=== PATIENT | male | born 1965 | race Caucasian/White ===

== ENCOUNTER 2016-11-06 01:15 | Emergency (ER) | payer MEDICAID ==
[~2016-11-06] VITALS: Ht 170.2 cm; Wt 54.4 kg
[2016-11-06] MEDS ORDERED: LIDOCAINE 1% MDV 20ML VIAL As Ordered ONE (03:32)
[2016-11-06] MEDS ORDERED: AUGMENTIN 875 MG TAB PO ONE (04:00)
[2016-11-06] MEDS ORDERED: AUGM500T34 PO (05:34)
[2016-11-06] MEDS ORDERED: NEOSPORIN OINT 0.9 GM PKT (FLOOR STOCK) As Ordered ONE (05:55)
[2016-11-06 06:06] VITALS: BP 155/75
--- NOTE | 2016-11-06 08:01 | REP ---
Right hand two views: Mineralization and joint spaces are normal. There is no fracture or dislocation. There is diffuse soft tissue edema of the middle finger. There is no fracture. Mineralization normal. Joint spaces are normal. Impression: Diffuse soft tissue edema of the middle finger. No skeletal abnormality. Signed by Fazal Cornelius MD 11/06/2016 07:51 A
== END 2016-11-06 06:07 | disposition home or self-care (01) ==
LOC: M ED 03:04
DX: S60.442A External constriction of right middle finger, initial encounter (principal); W49.04XA Ring or other jewelry causing external constriction, initial encounter; Y92.89 Other specified places as the place of occurrence of the external cause; Y93.89 Activity, other specified; Y99.8 Other external cause status; F10.20 Alcohol dependence, uncomplicated

== ENCOUNTER 2019-06-27 02:35 | Emergency (ER) | payer MEDICAID ==
[~2019-06-27] VITALS: Ht 175.3 cm; Wt 68.2 kg
[~2019-06-27 02:35] MED LIST: AUGM500T34 PO
[2019-06-27] MEDS ORDERED: TETANUS/DIPHTHERIA TOX ADSORB ADULT 0.5ML SYR/VIAL (90714) IM ONE ×2 (04:30→05:30)
[2019-06-27 04:40] LABS: BASO # 0.1 10^3/uL (0.0-0.2); BASO % 0.5 % (0.0-1.0); EOS # 0.1 10^3/uL (0.0-0.5); EOS % 0.6 % (0.0-3.0); HEMATOCRIT 44.8 % (42.0-52.0); HEMOGLOBIN 14.7 g/dl (13.5-17.5); LYMPH # 1.3 10^3/uL (1.5-5.0); LYMPH % 9.9 % (24.0-44.0); MEAN CORPUSCULAR HGB CONC 32.8 g/dl (32.0-36.5); MEAN CORPUSCULAR VOLUME 97.6 fl (80.0-96.0); MONO # 0.6 10^3/uL (0.0-0.8); MONO % 4.6 % (0.0-5.0); NEUTROPHILS # 10.8 10^3/uL (1.5-8.5); PLATELET COUNT, AUTOMATED 179 10^3/uL (150-450); RED BLOOD COUNT 4.59 10^6/uL (4.30-6.10); WHITE BLOOD COUNT 12.8 10^3/uL (4.0-10.0)
[2019-06-27 04:51] LABS: INR 0.95; PROTHROMBIN TIME 12.4 SECONDS (11.8-14.0)
[2019-06-27 04:52] LABS: PARTIAL THROMBOPLASTIN TIME 32.8 SECONDS (25.0-38.4)
[2019-06-27 04:59] LABS: BLOOD UREA NITROGEN 11 MG/DL (7-18); CALCIUM LEVEL 8.9 MG/DL (8.5-10.1); CARBON DIOXIDE LEVEL 30 MEQ/L (21-32); CHLORIDE LEVEL 107 MEQ/L (98-107); ETHYL ALCOHOL (ETHANOL) 0.179 % (0.000-0.010); GLOMERULAR FILTRATION RATE > 60.0 (>56); GLUCOSE, FASTING 92 MG/DL (70-100); POTASSIUM SERUM 3.6 MEQ/L (3.5-5.1); SODIUM LEVEL 145 MEQ/L (136-145)
[2019-06-27 05:54] VITALS: BP 111/66
--- NOTE | 2019-06-27 10:24 | REP ---
REASON FOR EXAM: Trauma. COMPARISON: 04/27/2015. Preliminary report given by Dr. Denny from [facility] at the time that the exam was performed. There is a tiny amount of increased density in the sulci of the right frontal lobe and representing a change from the prior exam consistent with a slight right frontal lobe subarachnoid hemorrhage. There are no other changes from the prior exam other than mucosal thickening in the left maxillary sinus. There is an old/age undetermined nasal arch fracture. IMPRESSION: Subarachnoid hemorrhage as described above with other findings. According to the preliminary report, Dr. Castro in the emergency Department was notified by the [facility]. Electronically Signed by Bob Mejía DO 06/27/2019 11:42 A
--- NOTE | 2019-06-27 10:28 | REP ---
REASON: Trauma. COMPARISON: 04/27/2015 Preliminary report was given by Dr. Denny from [facility] at the time that the exam was performed. 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 There is an old healed odontoid fracture. This was acute on the prior exam and extended into the facet base. Today's exam shows no acute odontoid fracture or evidence of other acute fracture. Degenerative change is seen throughout the spine status quo. IMPRESSION: Nonacute findings, however, if the patient is experiencing severe pain, then MRI would be in order. Electronically Signed by Bob Mejía DO 06/27/2019 11:42 A
== END 2019-06-27 05:57 | disposition short-term general hospital (02) ==
LOC: M ED 02:35
DX: S06.6X0A Traumatic subarachnoid hemorrhage without loss of consciousness, initial encounter (principal); S01.01XA Laceration without foreign body of scalp, initial encounter; X58.XXXA Exposure to other specified factors, initial encounter; Y92.410 Unspecified street and highway as the place of occurrence of the external cause; Y93.9 Activity, unspecified; Y99.9 Unspecified external cause status; F10.10 Alcohol abuse, uncomplicated
CPT/HCPCS: 12001; 70450; 72125; 80048; 85025; 85610; 85730; 90471; 90714; 99285; G0480

== ENCOUNTER 2023-08-29 11:36 | Emergency (ER) | payer MEDICAID ==
[2023-08-29] MEDS ORDERED: NS 1,000 ML IV SCH (11:50)
[2023-08-29] MEDS ORDERED: NS 1,000 ML IV ONE (12:20)
[2023-08-29 12:25] LABS: VENOUS BASE EXCESS 3.2 (-2.0-2.0); VENOUS HCO3 28.7 MMOL/L (23.0-27.0); VENOUS PARTIAL PRESSURE CO2 46.6 mmHg (38.0-50.0); VENOUS PH 7.408 UNITS (7.330-7.430); VENOUS STANDARD HCO3 26.4 MMOL/L; VENOUS TOTAL CO2 30.2 MMOL/L (24.0-28.0)
[2023-08-29 12:29] LABS: BASO % 0.1 % (0.0-1.0); HEMATOCRIT 44.7 % (42.0-52.0); HEMOGLOBIN 15.3 g/dl (13.5-17.5); LYMPH # 0.4 10^3/uL (1.5-5.0); LYMPH % 3.9 % (24.0-44.0); MEAN CORPUSCULAR HEMOGLOBIN 30.8 pg (27.0-33.0); MEAN CORPUSCULAR HGB CONC 34.2 g/dl (32.0-36.5); MEAN CORPUSCULAR VOLUME 90.1 fl (80.0-96.0); MONO # 0.2 10^3/uL (0.0-0.8); MONO % 2.3 % (2.0-8.0); NEUTROPHILS # 9.2 10^3/uL (1.5-8.5); NEUTROPHILS % 93.2 % (36.0-66.0); RED BLOOD COUNT 4.96 10^6/uL (4.30-6.10); WHITE BLOOD COUNT 9.9 10^3/uL (4.0-10.0)
[2023-08-29 12:39] LABS: INR 1.19; PROTHROMBIN TIME 14.7 SECONDS (12.5-14.5)
[2023-08-29 12:54] LABS: AMPHETAMINES LEVEL URINE NEGATIVE (NEGATIVE); BARBITURATES URINE NEGATIVE (NEGATIVE); BENZODIAZEPINES URINE NEGATIVE (NEGATIVE); CANNABINOIDS URINE NEGATIVE (NEGATIVE); COCAINE METABOLITE URINE NEGATIVE (NEGATIVE); METHADONE URINE NEGATIVE (NEGATIVE); OPIATES URINE NEGATIVE (NEGATIVE); PHENCYCLIDINE URINE NEGATIVE (NEGATIVE)
[2023-08-29 12:57] LABS: LIPASE 30 U/L (12-53)
[2023-08-29 12:59] LABS: ALBUMIN 3.3 G/DL (3.2-5.2); ALKALINE PHOSPHATASE 55 U/L (46-116); ALT/SGPT 25 U/L (7.0-40); AST/SGOT 27 U/L (<34); BILIRUBIN,DIRECT 0.3 MG/DL (<0.4); BILIRUBIN,TOTAL 0.6 MG/DL (0.3-1.2); BLOOD UREA NITROGEN 12 MG/DL (9-23); CALCIUM LEVEL 7.7 MG/DL (8.3-10.6); CARBON DIOXIDE LEVEL 28 MMOL/L (20-31); CHLORIDE LEVEL 101 MMOL/L (98-107); CREATININE FOR GFR 0.88 MG/DL (0.70-1.30); GLOMERULAR FILTRATION RATE > 60.0 (>49); GLUCOSE, FASTING 119 MG/DL (74-106); POTASSIUM SERUM 3.6 MMOL/L (3.5-5.1); SODIUM LEVEL 131 MMOL/L (136-145); TOTAL PROTEIN 6.8 G/DL (5.7-8.2)
[2023-08-29 13:01] LABS: THYROID STIMULATING HORMONE 0.579 uIU/ML (0.55-4.78)
[2023-08-29 13:03] LABS: OSMOLALITY SERUM 276 MOSM/KG (275-295)
[2023-08-29] MEDS ORDERED: cefTRIAXone SOD 2 GM in D5W MINI-BAG PLUS 50 ML IV ONE (13:10)
[2023-08-29 13:16] LABS: RSV AMPLIFICATION NEGATIVE (NEGATIVE)
[2023-08-29] MEDS ORDERED: CIPROFLOXACIN 500MG TABLET PO ONE (15:05)
[2023-08-29] MEDS ORDERED: CIPR500T39 PO (15:11)
[2023-08-29] MEDS ORDERED: MED REC IN PROGRESS XX SCH (15:40)
[2023-08-29 15:45] VITALS: BP 122/72; TEMP 99.7; O2SAT 96
[2023-08-29] MEDS ORDERED: HOME MED LIST COMPLETE! XX SCH (15:45)
[2023-08-29] MEDS ORDERED: NIRMATRELVIR/RITONAVIR CO-PACK (EMERGENCY USE AUTH) PO SCH ×2 (16:00→21:00)
[2023-08-31] MEDS ORDERED: CIPR500T39 PO (07:55)
== END 2023-08-29 17:50 | disposition home or self-care (01) ==
LOC: M ED 11:36
DX: U07.1 COVID-19 (principal); N39.0 Urinary tract infection, site not specified; E86.0 Dehydration; I45.10 Unspecified right bundle-branch block; Z79.2 Long term (current) use of antibiotics
CPT/HCPCS: 70450; 74176; 80048; 80076; 80307; 81001; 82140; 82803; 83605; 83690; 83930; 84443; 85025; 85610; 87040; 87088; 87186; 87507; 87631; 93005; 93041; 96361; 96365; 96366; 99285; J0696

== ENCOUNTER 2023-10-25 15:32 | Emergency (ER) | payer MEDICAID ==
[~2023-10-25] VITALS: Ht 177.8 cm; Wt 62.8 kg
[~2023-10-25 15:32] MED LIST changes: +CIPR500T39 PO
[2023-10-25] MEDS: BOOSTRIX VACCINE (TETANUS/DIPHTH/ACEL. PERTUSSIS) 0.5ML SYR IM ONE (17:22)
[2023-10-25] MEDS ORDERED: CEPH500C PO (19:00)
[2023-10-25] MEDS ORDERED: VASE1PAD2 EX (19:00)
[2023-10-25] MEDS ORDERED: KERLMIS12 XX (19:00)
[2023-10-25 19:11] VITALS: BP 142/78; TEMP 97.1; O2SAT 98
== END 2023-10-25 19:12 | disposition home or self-care (01) ==
LOC: M ED 15:32
DX: S61.204A Unspecified open wound of right ring finger without damage to nail, initial encounter (principal); W49.04XA Ring or other jewelry causing external constriction, initial encounter; F17.200 Nicotine dependence, unspecified, uncomplicated; F12.10 Cannabis abuse, uncomplicated; F10.10 Alcohol abuse, uncomplicated; Z79.2 Long term (current) use of antibiotics; Z79.899 Other long term (current) drug therapy; Y92.9 Unspecified place or not applicable; Y93.9 Activity, unspecified; Y99.9 Unspecified external cause status; Z23 Encounter for immunization